=== PATIENT | female | born 1955 | race Caucasian/White ===

== ENCOUNTER 2024-07-04 14:59 | Emergency (ER) | payer MEDICARE, BC ==
[~2024-07-04] VITALS: Ht 160 cm; Wt 66.0 kg
[~2024-07-04 14:59] MED LIST: FERR-29 PO; HYDR-3964 PO; PREVCR VG
[2024-07-04 17:10] LABS: BASOPHILS % (AUTO) 0.3 % (0-1); EOSINOPHILS # (AUTO) 0.2 X10'3 (0-0.9); EOSINOPHILS % (AUTO) 1.7 % (0-6); HEMATOCRIT 39.7 % (35.0-45.0); HEMOGLOBIN 13.4 g/dl (12.0-16.0); LYMPHOCYTES # (AUTO) 1.9 X10'3 (1.1-4.8); LYMPHOCYTES % (AUTO) 19.6 % (21-51); MEAN CORPUSCULAR HEMOGLOBIN 31.1 PG (27.0-31.0); MEAN CORPUSCULAR HGB CONC 33.8 g/dL (33.0-36.5); MEAN CORPUSCULAR VOLUME 91.8 FL (78-98); MEAN PLATELET VOLUME 8.4 FL (7.4-10.4); MONOCYTES # (AUTO) 0.9 X10'3 (0-0.9); MONOCYTES % (AUTO) 9.6 % (2-12); NEUTROPHILS # (AUTO) 6.7 X10'3 (1.8-7.7); NEUTROPHILS % (AUTO) 68.8 % (42-75); PLATELET COUNT 214 X10'3 (140-440); RED BLOOD COUNT 4.32 X10'6 (4.20-5.60); WHITE BLOOD COUNT 9.8 X10'3 (4.5-11.0)
[2024-07-04 17:21] LABS: ALANINE AMINOTRANSFERASE 49 U/L (12-78); ALBUMIN 2.8 G/DL (3.4-5.0); ALBUMIN/GLOBULIN RATIO 0.8 (1.1-1.5); ALKALINE PHOSPHATASE 493 IU/L (46-116); ANION GAP 9 (8-16); ASPARTATE AMINO TRANSFERASE 52 U/L (10-37); BILIRUBIN,TOTAL 0.8 MG/DL (0.1-1.0); BLOOD UREA NITROGEN 19 MG/DL (7-18); BUN/CREATININE RATIO 31.1 (10.0-20.0); CALCIUM 8.8 MG/DL (8.5-10.1); CHLORIDE 99 MMOL/L (99-107); CREATININE 0.61 MG/DL (0.40-0.90); GLUCOSE 104 MG/DL (70-104); SODIUM 137 MMOL/L (135-145); TOTAL CARBON DIOXIDE 28.9 MMOL/L (24-32); TOTAL PROTEIN 6.2 G/DL (6.4-8.2); eCRCL 73 ML/MIN; eGFR > 90 ML/MIN
[2024-07-04 17:30] LABS: POTASSIUM 2.8 MMOL/L (3.5-5.1)
[2024-07-04] MEDS: potassium Cl 20 mEq SR tablet PO STA (17:42)
[2024-07-04] MEDS ORDERED: AZIT250T82 PO (18:07)
[2024-07-04] MEDS ORDERED: AMOX-117 PO (18:07)
[2024-07-04 18:20] LABS: MAGNESIUM 2.1 MG/DL (1.5-2.4)
[2024-07-04] MEDS: amox tr/potassium clavulanate 875/125mg TAB PO ONE (18:34)
[2024-07-04] MEDS: azithromycin 250mg tablet PO ONE (18:34)
[2024-07-04] MEDS ORDERED: POTA-207 PO (18:58)
[2024-07-04 19:09] VITALS: BP 120/100; PULSE 85; RESP 16; TEMP 98.8; O2SAT 97
== END 2024-07-04 19:04 | disposition home or self-care (01) ==
LOC: ER 15:01
DX: J18.9 Pneumonia, unspecified organism (principal); E87.6 Hypokalemia; I51.7 Cardiomegaly; C18.9 Malignant neoplasm of colon, unspecified; Z88.2 Allergy status to sulfonamides; Z88.1 Allergy status to other antibiotic agents; Z79.899 Other long term (current) drug therapy
CPT/HCPCS: 36415; 71046; 80053; 83735; 85025; 93005; 99285